=== PATIENT | female | born 1965 | race African-American/Black ===

== ENCOUNTER → 2020-10-23 08:52 | Outpatient (BNVA) | payer OTHER, SELFPAY | PROVIDERS: Family Provider Family Medicine; PCP Family Medicine; Visit Provider Internal Medicine | DX: M06.9 Rheumatoid arthritis, unspecified (principal); M24.521 Contracture, right elbow; M24.522 Contracture, left elbow; Z79.899 Other long term (current) drug therapy | CPT/HCPCS: 99203 ==

== ENCOUNTER 2022-09-22 13:31 | Emergency (ER) | payer OTHER, BC, SELFPAY ==
[2022-09-22 13:39] VITALS: BP 175/112; PULSE 57; RESP 16; TEMP 36.4; O2SAT 100; BMI 26.6
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
--- NOTE | 2022-09-22 14:49 | PC.PHAR ---
PT STATES SHE TAKES CARE OF HER OWN MEDICATIONS-RX FILLED 09/09/22 30D/S ATENOLOL 25MG TAKE 2 TABLETS BY MOUTH IN THE MORNING AND 1 IN THE AFTERNOON PT STATES JUST TAKES 25MG BID-NOTES ARE MADE IN THE PHARMACY COMMENTS
[2022-09-22 15:46] LABS: Basophils % 0.2 %; Hematocrit 41.7 % (37.0-47.0); Hemoglobin 13.2 g/dL (11.5-15.3); Lymphocytes # 1.3 10^3/uL (0.8-4.8); Lymphocytes % 30.6 %; Mean Corpuscular HGB Conc 31.7 g/dL (30.0-36.0); Mean Corpuscular Hemoglobin 31.4 pg (28.0-34.0); Mean Corpuscular Volume 99.3 fl (81-99); Mean Platelet Volume 12.4 fL (7.4-10.4); Monocytes # 0.4 10^3/uL (0.2-0.9); Monocytes % 9.5 %; Neutrophils # 2.41 10^3/uL (1.8-7.7); Neutrophils % 58.5 %; Nucleated Red Blood Cells % 0 %; Platelet Count 143 10^3/cmm (130-400); Red Cell Distribution Width 12.8 % (12.1-15.1); White Blood Count 4.1 10^3/uL (4.0-10.0)
[2022-09-22 16:19] LABS: Anion Gap 13.8 (5-19); Blood Urea Nitrogen 10 mg/dL (6-20); Calcium 9.8 mg/dL (8.5-10.5); Carbon Dioxide 24 mmol/L (22-29); Chloride 105 mmol/L (98-107); Glomerular Filtration Rate 88.8 mL/min (90-130); Glucose 92 mg/dL (65-115); Osmolality Calculated 287 mOsm/kg (285-295); Potassium 3.8 mmol/L (3.5-5.1); Sodium 139 mmol/L (136-145)
== END 2022-09-22 17:23 | disposition home or self-care (01) ==
PROVIDERS: Emergency Provider Family Medicine; PCP Family Medicine
DX: S23.3XXA Sprain of ligaments of thoracic spine, initial encounter (principal); V89.2XXA Person injured in unspecified motor-vehicle accident, traffic, initial encounter
CPT/HCPCS: 36415; 72072; 73030; 73590; 80048; 85025; 99283

== ENCOUNTER 2024-03-18 19:10 | Emergency (ER) | payer OTHER, SELFPAY ==
[2024-03-18 20:05] VITALS: BP 168/99; PULSE 71; RESP 16; TEMP 36.6; O2SAT 100; BMI 27.0
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
== END 2024-03-18 22:59 | disposition home or self-care (01) ==
PROVIDERS: Emergency Provider Physician Assistant; PCP Family Medicine
DX: S13.4XXA Sprain of ligaments of cervical spine, initial encounter (principal); V89.2XXA Person injured in unspecified motor-vehicle accident, traffic, initial encounter
CPT/HCPCS: 72040; 73030; 99284

== ENCOUNTER 2024-04-07 06:00 | Outpatient (RCR) | payer OTHER, SELFPAY | END 2024-04-15 23:59 | disposition home or self-care (01) | LOC: SPT 06:00 | PROVIDERS: Visit Provider Clinical Nurse Specialist Adult Health | DX: M25.512 Pain in left shoulder (principal); S13.9XXD Sprain of joints and ligaments of unspecified parts of neck, subsequent encounter; V89.2XXD Person injured in unspecified motor-vehicle accident, traffic, subsequent encounter | CPT/HCPCS: 97110; 97161; G0283 ==

== ENCOUNTER 2024-04-16 06:00 | Outpatient (RCR) | payer OTHER, SELFPAY | END 2024-05-15 23:59 | disposition home or self-care (01) | LOC: SPT 06:00 | PROVIDERS: Visit Provider Clinical Nurse Specialist Adult Health | DX: M25.512 Pain in left shoulder (principal); S13.9XXD Sprain of joints and ligaments of unspecified parts of neck, subsequent encounter; V89.2XXD Person injured in unspecified motor-vehicle accident, traffic, subsequent encounter | CPT/HCPCS: 97110; G0283 ==

== ENCOUNTER 2024-05-16 06:00 | Outpatient (RCR) | payer OTHER, SELFPAY | END 2024-06-15 23:59 | disposition home or self-care (01) | LOC: SPT 06:00 | PROVIDERS: Visit Provider Clinical Nurse Specialist Adult Health | DX: M25.512 Pain in left shoulder (principal); S13.9XXD Sprain of joints and ligaments of unspecified parts of neck, subsequent encounter; V89.2XXD Person injured in unspecified motor-vehicle accident, traffic, subsequent encounter | CPT/HCPCS: 97110 ==